=== PATIENT | female | born 1975 | race Caucasian/White ===

== ENCOUNTER → 2016-03-08 | Outpatient (CLI) | payer BC, MEDICARE ==
[2015-07-17 22:40] VITALS: BP 184/80
[~2016-03-08] MED LIST: LEVO50TA PO; Oxycodone Hcl/Acetaminophen PO; POLY17PO5 PO
--- NOTE | 2016-03-11 12:51 | SLEEP ---
DATE OF STUDY: 03/09/2016 ATTENDING PHYSICIAN: Dr. Wesley Fischer. The patient is a 40-year-old who weighs 300 pounds with a BMI of 51. The patient's [place] score was 17. Sleep study was performed at [facility] to rule out MAYANK. During the night study, the patient spent 428 minutes in bed and slept for 378 minutes with sleep efficiency of 87%. Sleep latency was 2 minutes with a REM latency of 155 minutes. Overall, sleep architecture showed increased stage I sleep, normal stage II sleep, normal slow wave and reduced REM sleep. During the night of the study, patient had no obstructive apneas, mixed or central apneas. There were 22 hypopneas. The patient's apnea hypopnea index was only 4 per hour. Supine index 8 per hour and REM index of 3 per hour. Review of nocturnal oximetry study revealed a mean oxygen saturation 97%, the lowest of 89%. No clinically significant desaturation of less than 89% were observed. EKG monitoring revealed normal sinus rhythm. No sustained arrhythmias were observed. Average heart rate was 79 beats per minute. PLMS were seen at index of 38 per hour and none caused EEG arousals. Due to low AHI, the patient did not meet the split night criteria for CPAP initiation. IMPRESSION: 1. No clinically significant sleep disordered breathing. The patient's AHI for the entire night was 4 per hour. 2. No clinically significant nocturnal hypoxia. 3. Moderate PLMS at an index of 38 per hour, but none caused EEG arousals. RECOMMENDATIONS: 1. The patient did not meet the split night criteria for CPAP initiation. 2. The patient has moderate to severe subjective hypersomnia without any significant sleep disorder breathing. The patient is not on any sedatives or narcotics either. Consider ruling out other possible etiologies such as narcolepsy or idiopathic hypersomnia. If clinically indicated, consider doing multiple sleep latency tests. 3. 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 4. Caution regarding driving until patient's hypersomnia is resolved. 5. PLMS does not need to be treated unless the patient has symptoms of restless legs during the day. MARTIN FERRARA MD DR: ROLAND/wade JOB#: [id number] / [id number] WESLEY Cr MDD
== END | disposition home or self-care (01) ==
LOC: RT 18:18
PROVIDERS: ATTEND Family Medicine
DX: R53.83 Other fatigue (principal); I10 Essential (primary) hypertension; E03.9 Hypothyroidism, unspecified; Z68.42 Body mass index [BMI] 45.0-49.9, adult; E66.01 Morbid (severe) obesity due to excess calories; G47.33 Obstructive sleep apnea (adult) (pediatric)
CPT/HCPCS: 95810

== ENCOUNTER 2016-09-04 09:14 | Emergency (ER) | payer BC ==
[2015-07-17 22:40] VITALS: BP 184/80
[~2016-09-04 09:14] MED LIST changes: +POLY17PO29 PO; -POLY17PO5 PO
== END 2016-09-04 09:20 | disposition left against medical advice (07) ==
LOC: ER 09:14
DX: S69.91XA Unspecified injury of right wrist, hand and finger(s), initial encounter (principal); Z53.21 Procedure and treatment not carried out due to patient leaving prior to being seen by health care provider; X58.XXXA Exposure to other specified factors, initial encounter; Y93.89 Activity, other specified; Y92.89 Other specified places as the place of occurrence of the external cause; Y99.8 Other external cause status

== ENCOUNTER 2017-01-04 12:34 | Emergency (ER) | payer BC ==
[~2017-01-04] VITALS: Ht 162.6 cm; Wt 134.3 kg
[2017-01-04] MEDS ORDERED: BENZONATATE 100 MG CAPSULE. PO ONE (13:15)
[2017-01-04] MEDS ORDERED: IPRATRPIUM/ALBUTEROL 0.5/2.5MG 3 ML NEBU. NEB ONE (13:15)
[2017-01-04] MEDS ORDERED: predniSONE 20 MG TABLET PO ONE (13:15)
--- NOTE | 2017-01-04 13:25 | RAD ---
Chest, 2 views, 01/04/2017: History: Cough Comparison is made to a study from 10/19/2008. The heart size and pulmonary vascularity are normal. No pulmonary infiltrates are seen. There is no evidence of pleural fluid. Mild spurring is present in the spine. IMPRESSION: No acute cardiopulmonary abnormality is detected.
[2017-01-04] MEDS ORDERED: BENZ100C PO (13:49)
[2017-01-04] MEDS ORDERED: PROAIR HFA8.5 GM INH (13:49)
[2017-01-04] MEDS ORDERED: PRED50TA PO (13:49)
--- NOTE | 2017-01-04 13:49 | PHYS DOC ---
Past Medical History Past Medical History: Hypertension, Hypothyroid Past Surgical History: Cholecystectomy Additional Past Surgical Histo: R FINGER, CYST FROM ABD Alcohol Use: Rarely Drug Use: None Adult General Chief Complaint Chief Complaint: COUGH HPI HPI Patient is a 41 year old female with history of hypertension who presents today complaining of a productive cough with nasal congestion for one week. Patient denies any fever. Patient is actively coughing in the ED. Denies any history of smoking. Review of Systems Review of Systems Constitutional: Denies fever or chills [] Eyes: Denies change in visual acuity, redness, or eye pain [] HENT: Reports nasal congestion, denies sore throat [] Respiratory: Reports cough denies shortness of breath [] Cardiovascular: No additional information not addressed in HPI [] GI: Denies abdominal pain, nausea, vomiting, bloody stools or diarrhea [] : Denies dysuria or hematuria [] Musculoskeletal: Denies back pain or joint pain [] Integument: Denies rash or skin lesions [] Neurologic: Denies headache, focal weakness or sensory changes [] All other systems were reviewed and found to be within normal limits, except as documented in this note. Current Medications Current Medications Current Medications Medications (Trade) Dose Ordered Sig/Daily Start Time Stop Time Status Last Admin Dose Admin Albuterol/ Ipratropium (Duoneb) 3 ml 1X ONCE 01/04/17 13:15 01/04/17 13:16 DC 01/04/17 13:26 3 ML Benzonatate (Tessalon Perle) 100 mg 1X ONCE 01/04/17 13:15 01/04/17 13:16 DC 01/04/17 13:15 100 MG Prednisone (Prednisone) 60 mg 1X ONCE 01/04/17 13:15 01/04/17 13:16 DC 01/04/17 13:15 60 MG Allergies Allergies Allergies Coded Allergies Type Severity Reaction Last Updated Verified NSAIDS (Non-Steroidal Anti-Inflamma Allergy Intermediate 03/29/14 Yes Physical Exam Physical Exam Constitutional: Well developed, well nourished, no acute distress, non-toxic appearance. [] HENT: Normocephalic, atraumatic, bilateral external ears normal, oropharynx moist, no oral exudates, nose normal. [] Eyes: PERRLA, EOMI, conjunctiva normal, no discharge. [] Neck: Normal range of motion, no tenderness, supple, no stridor. [] Cardiovascular:Heart rate regular rhythm, no murmur [] Lungs & Thorax: Bilateral breath sounds clear to auscultation patient is actively coughing in the ED Abdomen: Bowel sounds normal, soft, no tenderness, no masses, no pulsatile masses. [] Skin: Warm, dry, no erythema, no rash. [] Back: No tenderness, no CVA tenderness. [] Extremities: No tenderness, no cyanosis, no clubbing, ROM intact, no edema. [] Neurologic: Alert and oriented X 3, normal motor function, normal sensory function, no focal deficits noted. [] Psychologic: Affect normal, judgement normal, mood normal. [] Current Patient Data Vital Signs Vital Signs Date Time Temp Pulse Resp B/P (MAP) Pulse Ox O2 Delivery O2 Flow Rate FiO2 01/04/17 13:29 97 Room Air 01/04/17 13:17 207/111 (143) 01/04/17 12:41 98.7 91 20 98.7 EKG EKG [] Radiology/Procedures Radiology/Procedures [] Course & Med Decision Making Course & Med Decision Making Pertinent Labs and Imaging studies reviewed. (See chart for details) Patient is in the ED with symptoms of viral bronchitis including cough and nasal congestion for one week. Chest x-ray interpreted by radiologist as negative for any acute findings. She is given a DuoNeb treatment prednisone and Tessalon Perles and be discharged with the same. Instructed to follow-up with the PCP in 1-2 weeks. Dragon Disclaimer Dragon Disclaimer This electronic medical record was generated, in whole or in part, using a voice recognition dictation system. Departure Departure Impression: Primary Impression: Acute viral bronchitis Additional Impression: Upper respiratory infection Disposition: 01 HOME, SELF-CARE Condition: STABLE Referrals: WESLEY KWAN MD (PCP) Follow-up with your doctor in 1-2 weeks Patient Instructions: Acute Bronchitis, Upper Respiratory Infection, Adult, [id number] Additional Instructions: You were seen with symptoms consistent of viral bronchitis. Take the prescribed medicines as ordered. Follow-up with a primary care doctor in the next 1-2 weeks. 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
[2017-01-04 13:52] VITALS: BP 188/106
== END 2017-01-04 13:52 | disposition home or self-care (01) ==
LOC: ER 12:34
DX: J06.9 Acute upper respiratory infection, unspecified (principal); J20.8 Acute bronchitis due to other specified organisms; I10 Essential (primary) hypertension; E03.9 Hypothyroidism, unspecified; Z88.6 Allergy status to analgesic agent
CPT/HCPCS: 71020; 94250; 94640; 94760; 99284; J7512; J7620

== ENCOUNTER → 2017-01-10 | Outpatient (CLI) | payer BC ==
[2017-01-04 13:52] VITALS: BP 188/106
[~2017-01-10] MED LIST changes: +BENZ100C PO; +GADOBUTROL 10 MMOL/10 ML VIAL IV ONE; +PRED50TA PO; +PROAIR HFA8.5 GM INH
--- NOTE | 2017-01-10 12:38 | RAD ---
MRI of the cervical spine without and with contrast 01/10/2017 CLINICAL HISTORY: Abnormal movements and spasms. TECHNIQUE: Unenhanced T1-weighted, T2-weighted and inversion recovery sagittal and gradient echo, T2-weighted and T1-weighted axial images of the cervical spine were obtained. After the intravenous administration of 10 cc of Gadavist, enhanced T1-weighted sagittal and axial images of the cervical spine were obtained. FINDINGS: Mild lateral curvature of the cervical spine is seen convex to the right. There is straightening of the normal cervical lordosis. Degenerative signal changes are seen involving all of the disks of the cervical spine. Degenerative changes are seen within the marrow surrounding these discs. A 1.1 cm hemangioma is seen involving the T1 vertebral body. The cervical spinal cord is normal morphology, position, and signal characteristics. No area of abnormal contrast enhancement is seen. Mild to moderate mucosal thickening is seen involving the visualized paranasal sinuses. On the axial images degenerative changes are seen involving the cervical disc spaces consisting of minimal to mild generalized disc bulges and degenerative changes involving the uncovertebral and facet joints bilaterally. These findings do not result in significant central spinal canal or neural foraminal stenosis at any level. IMPRESSION: Mild degenerative changes are seen involving the cervical spine. These findings do not result in significant central spinal canal or neural foraminal stenosis at any level. No area of abnormal signal intensity or contrast enhancement is seen involving the cervical spinal cord. Electronically signed by: Kirill Ya MD (01/10/2017 12:34 PM) [facility]
== END | disposition home or self-care (01) ==
LOC: MRI 08:31
PROVIDERS: ATTEND Psychiatry & Neurology Neurology
DX: M47.892 Other spondylosis, cervical region (principal)
CPT/HCPCS: 72156; A9585

== ENCOUNTER → 2017-01-20 | Outpatient (CLI) | payer BC ==
[2017-01-04 13:52] VITALS: BP 188/106
[~2017-01-20] MED LIST changes: -GADOBUTROL 10 MMOL/10 ML VIAL IV ONE
--- NOTE | 2017-01-25 18:57 | EEG ---
DATE OF SERVICE: 01/20/2017 EEG NUMBER: [id number]. SUBJECTIVE: This is a 41-year-old female patient with history of abnormal movements. EEG was requested to help rule out seizure. METHODS: Twenty electrodes were applied according to the international 10-20 electrode placement system. EKG monitoring, hyperventilation, intermittent photic stimulation, monopolar and bipolar montages are routinely utilized. The record was obtained on a digital system with video monitoring. FINDINGS: 1. Background: The patient was recorded in the awake and drowsy states. No sleep state was recorded. The overall background amplitude is 5-15 microvolts. No clear well organized posterior dominant rhythm is observed. The overall background rhythm is with fast activity in Beta frequency throughout the entire recording. 2. Abnormalities: No specific epileptiform discharge or electrographic seizure is seen. No focal or diffuse slowing. EKG artifact is throughout the entire recording. 3. Activation: Hyperventilation was performed with good efforts and normal response. Intermittent photic stimulation was performed with photic driving. No specific epileptiform discharge or electrographic seizure induced by hyperventilation or intermittent photic stimulation. IMPRESSION: This EEG is a borderline study for the awake and drowsy states. No sleep state was recorded. The overall background rhythm is with fast activity in Beta frequency. No focal, lateralizing, specific epileptiform discharge or electrographic seizure is seen. However, even a normal EEG does not rule out seizure. Suggest repeat EEG; this EEG is with fast activity in Beta frequency through out the entire recording maybe under medication effects. WEI FERRARA MD DR: BULL/wade JOB#: [id number] / [id number] JEANIE
== END | disposition home or self-care (01) ==
LOC: RT 07:46
PROVIDERS: ATTEND Psychiatry & Neurology Neurology
DX: R25.9 Unspecified abnormal involuntary movements (principal)
CPT/HCPCS: 95816

== ENCOUNTER → 2017-01-26 | Outpatient (CLI) | payer BC ==
[2017-01-04 13:52] VITALS: BP 188/106
[2017-01-26 09:24] LABS: BASO # 0.1 x10^3/uL (0.0-0.2); BASO % 1 % (0-3); EOS % 3 % (0-3); HEMATOCRIT 42.7 % (36.0-47.0); HEMOGLOBIN 14.3 g/dL (12.0-15.5); LYMPH % 29 % (24-48); MEAN CORPUSCULAR HEMOGLOBIN 31 pg (25-35); MEAN CORPUSCULAR HGB CONC 34 g/dL (31-37); MEAN CORPUSCULAR VOLUME 92 fL (79-100); MONO % 5 % (0-9); NEUT % 63 % (31-73); PLATELET COUNT 231 x10^3/uL (140-400); RED BLOOD COUNT 4.65 x10^6/uL (3.50-5.40); RED CELL DISTRIBUTION WIDTH 13.7 % (11.5-14.5); WHITE BLOOD COUNT 10.3 x10^3/uL (4.0-11.0)
[2017-01-26 09:43] LABS: % SAT IRON 32 % (15-34); IRON,SERUM 99 ug/dL (50-170)
[2017-01-26 10:00] LABS: ALBUMIN 3.8 g/dL (3.4-5.0); ALBUMIN/GLOBULIN RATIO 0.9 (1.0-1.7); CREATININE 0.6 mg/dL (0.6-1.0); GFR 109.6; POTASSIUM 3.6 mmol/L (3.5-5.1); TOTAL BILIRUBIN 0.6 mg/dL (0.2-1.0); TOTAL PROTEIN 8.2 g/dL (6.4-8.2)
== END | disposition home or self-care (01) ==
LOC: LAB 09:03
PROVIDERS: ATTEND Psychiatry & Neurology Neurology
DX: R25.9 Unspecified abnormal involuntary movements (principal); R79.89 Other specified abnormal findings of blood chemistry
CPT/HCPCS: 36415; 80053; 82306; 82607; 82728; 83540; 83550; 84443; 85025

== ENCOUNTER → 2017-03-07 | Outpatient (CLI) | payer BC | END | disposition home or self-care (01) | LOC: RT 08:47 | DX: R25.9 Unspecified abnormal involuntary movements (principal) | CPT/HCPCS: 95816 ==

== ENCOUNTER 2018-02-27 07:26 | Emergency (ER) | payer SELFPAY ==
[~2018-02-27] VITALS: Ht 162.6 cm; Wt 143.8 kg
[~2018-02-27 07:26] MED LIST changes: +ALBU2.5V8 INH; -PROAIR HFA8.5 GM INH
--- NOTE | 2018-02-27 08:45 | RAD ---
LEFT LOWER EXTREMITY ULTRASOUND WITH DOPPLER 02/27/2018 8:21 AM Clinical Information: Left leg pain and fall. Comparison: None. Technique: Multiple grayscale, color Doppler, and spectral Doppler sonographic images of the lower extremity venous structures were obtained. Findings: Greater saphenous veins patent. The left common femoral, femoral, and popliteal veins exhibit normal compression, respiratory phasicity, and augmentation. No intraluminal thrombi are identified. Color Doppler flow is demonstrated in the left posterior tibial veins. Impression: 1. No evidence of deep venous thrombosis. Electronically signed by: Lorena Rapp MD (02/27/2018 8:40 AM) [facility]
--- NOTE | 2018-02-27 09:09 | RAD ---
Indication: Left anterior tibia/fibula pain due to fall and swelling of the ankle joint. TECHNIQUE: AP and lateral views of the left tibia and fibula COMPARISON: None FINDINGS/ impression: No acute fracture or dislocation. Mild swelling overlying lateral malleolus. Mild tricompartmental osteoarthritis of the knee joint. Electronically signed by: Nadir Quiroga DO (02/27/2018 9:05 AM) [id number]
--- NOTE | 2018-02-27 09:51 | PHYS DOC ---
Past Medical History Past Medical History: Hypertension, Hypothyroid Past Surgical History: Cholecystectomy Additional Past Surgical Histo: R FINGER, CYST FROM ABD Additional Information: Denies smoking Alcohol Use: Rarely Drug Use: None Adult General Chief Complaint Chief Complaint: MECHANICAL FALL HPI HPI Patient is a 42 year old female who presents with complaining of left lower extremity pain and ecchymosis after she had a fall. Patient states she had a fall 3 days ago on a slippery parking lot because of the ice and landed on concrete area and injured left lower extremity. Patient states she had ecchymosis of left leg that gradually getting worse and extending to her left flank. Patient also complaining of numbness of left knee area without other focal neuro deficit. Patient denies loss of consciousness and other injuries. Patient rated her pain as a moderate pain and does not want to have pain medication in ER. Review of Systems Review of Systems Constitutional: Denies fever or chills [] Eyes: Denies change in visual acuity, redness, or eye pain [] HENT: Denies nasal congestion or sore throat [] Respiratory: Denies cough or shortness of breath [] Cardiovascular: No additional information not addressed in HPI [] GI: Denies abdominal pain, nausea, vomiting, bloody stools or diarrhea [] : Denies dysuria or hematuria [] Musculoskeletal: Denies back pain, reports joint pain [] Integument: Denies rash, reports ecchymoses Neurologic: Denies headache, focal weakness or sensory changes [] Endocrine: Denies polyuria or polydipsia [] All other systems were reviewed and found to be within normal limits, except as documented in this note. Allergies Allergies Allergies Coded Allergies Type Severity Reaction Last Updated Verified meloxicam Allergy Severe Swelling 02/27/18 Yes NSAIDS (Non-Steroidal Anti-Inflamma Allergy Intermediate 03/29/14 Yes Physical Exam Physical Exam Constitutional: Well developed, well nourished, no acute distress, non-toxic appearance, morbidly obese. [] HENT: Normocephalic, atraumatic Eyes: PERRLA, EOMI, conjunctiva normal, no discharge. [] Neck: Normal range of motion, no tenderness, supple, no stridor. [] Cardiovascular:Heart rate regular rhythm, no murmur [] Lungs & Thorax: Bilateral breath sounds clear to auscultation [] Skin: Warm, dry, no erythema, no rash. [] Back: No tenderness, no CVA tenderness. [] Extremities: Left lower extremity with extensive old ecchymoses from wound down to ankle and feet with trace edema with mild tenderness in lateral side of leg the pulses, no sign of compartment syndrome, subjective paresthesia around the left knee, ROM intact. [] Neurologic: Alert and oriented X 3, normal motor function, no focal deficits noted. [] Psychologic: Affect normal, judgement normal, mood normal. [] Current Patient Data Vital Signs Vital Signs Date Time Temp Pulse Resp B/P (MAP) Pulse Ox O2 Delivery O2 Flow Rate FiO2 02/27/18 07:48 97.9 79 17 187/94 (125) 97 Room Air 97.9 EKG EKG [] Radiology/Procedures Radiology/Procedures [address] [address] IMAGING REPORT Signed PATIENT: HIWOT FAIRBANKS ACCOUNT: [id number] : 1975 LOCATION: ER AGE: 42 SEX: F EXAM STATUS: REG ER ORD. PHYSICIAN: LEDY AVILA MD REASON: fall , edema and pain PROCEDURE: VENOUS LOWER EXTREMITY LEFT LEFT LOWER EXTREMITY ULTRASOUND WITH DOPPLER 02/27/2018 8:21 AM Clinical Information: Left leg pain and fall. Comparison: None. Technique: Multiple grayscale, color Doppler, and spectral Doppler sonographic images of the lower extremity venous structures were obtained. Findings: Greater saphenous veins patent. The left common femoral, femoral, and popliteal veins exhibit normal compression, respiratory phasicity, and augmentation. No intraluminal thrombi are identified. Color Doppler flow is demonstrated in the left posterior tibial veins. Impression: 1. No evidence of deep venous thrombosis. Electronically signed by: Gustavo Griffin MD (02/27/2018 8:40 AM) [facility] DICTATED and SIGNED BY: GUSTAVO GRIFFIN MD DATE: 02/27/[address] [address] IMAGING REPORT Signed PATIENT: HIWOT FAIRBANKS ACCOUNT: [id number] : 1975 LOCATION: ER AGE: 42 SEX: F EXAM STATUS: REG ER ORD. PHYSICIAN: LEDY AVILA MD REASON: fall PROCEDURE: TIBIA FIBULA LEFT Indication: Left anterior tibia/fibula pain due to fall and swelling of the ankle joint. TECHNIQUE: AP and lateral views of the left tibia and fibula COMPARISON: None FINDINGS/ impression: No acute fracture or dislocation. Mild swelling overlying lateral malleolus. Mild tricompartmental osteoarthritis of the knee joint. Electronically signed by: Nadir Quiroga DO (02/27/2018 9:05 AM) [id number] DICTATED and SIGNED BY: NADIR QUIROGA DO DATE: 02/27/18902 Course & Med Decision Making Course & Med Decision Making Pertinent Imaging studies reviewed. (See chart for details) Evaluation of patient in ER showed 42-year-old male patient with accidental fall is and injury to left lower extremity with complaining of increasing ecchymosis and subjective paresthesias of skin of left knee. Patient had extensive ecchymoses without deformity. Patient did not have vascular deficit and had normal range of motion. X-ray and ultrasound of lower extremity was unremarkable for fracture or DVT. Patient did not want to have pain medication in ER. Plan to apply Ramón wrap and discharge patient home to diagnose of ecchymosis and constipation. Dragon Disclaimer Dragon Disclaimer This electronic medical record was generated, in whole or in part, using a voice recognition dictation system. Departure Departure Impression: Primary Impression: Traumatic ecchymosis of left lower leg Additional Impressions: Paresthesias Fall from slipping on ice Morbid obesity with BMI of 50.0-59.9, adult Contusion of left lower extremity Disposition: HOME, SELF-CARE (at 0948) Condition: STABLE Referrals: WESLEY KWAN MD (PCP) Patient Instructions: Contusion, Paresthesia Additional Instructions: Apply ice on the affected area Elevate your left leg Follow-up with your primary care physician in 3-5 days Return to ER if not getting better Problem Qualifiers LEDY AVILA MD Feb 27, 2018 09:51
[2018-02-27 10:20] VITALS: BP 164/88
== END 2018-02-27 10:36 | disposition home or self-care (01) ==
LOC: ER 07:26
DX: S80.12XA Contusion of left lower leg, initial encounter (principal); R20.2 Paresthesia of skin; I10 Essential (primary) hypertension; E66.01 Morbid (severe) obesity due to excess calories; Z68.43 Body mass index [BMI] 50.0-59.9, adult; E03.9 Hypothyroidism, unspecified; Z90.49 Acquired absence of other specified parts of digestive tract; Z88.8 Allergy status to other drugs, medicaments and biological substances; W00.0XXA Fall on same level due to ice and snow, initial encounter; Y93.89 Activity, other specified; Y92.481 Parking lot as the place of occurrence of the external cause; Y99.8 Other external cause status
CPT/HCPCS: 29125; 29515; 73590; 93971; 99284

== ENCOUNTER → 2019-09-25 | Outpatient (CLI) | payer BC ==
--- NOTE | 2019-09-25 15:26 | KCIC ---
EXAM: Pelvic sonogram. HISTORY: Menstrual irregularity. TECHNIQUE: Transabdominal and transvaginal sonographic imaging of the pelvis was performed. COMPARISON: None. FINDINGS: The uterus measures 9.5 x 5.2 x 5.3 cm. There is a suspected fibroid within the left uterine fundus measuring 6.1 x 5.3 x 4.7 cm. The endometrial stripe measures 5.5 mm thickness. There is a 5.3 x 4.7 x 4.1 cm cyst within the right ovary. There is normal blood flow within the surrounding right ovarian parenchyma. The left ovary measures 3.4 x 1.8 x 2.1 cm and contains small follicles. There is no pelvic free fluid. IMPRESSION: 1. Suspected 6.1 cm uterine fibroid. 2. Normal endometrial thickness for the reported premenopausal status of the patient. 3. 5.3 cm right ovarian cyst. Electronically signed by: Alfreda Ohara MD (09/25/2019 3:23 PM) [id number]
--- NOTE | 2019-09-25 16:48 | KCIC ---
Bilateral digital screening mammograms with 3-D tomosynthesis: Reason for examination: Routine baseline screening. Bilateral mammograms in CC and oblique projections were obtained with 2-D imaging and 3-D tomosynthesis imaging on a Siemens Inspiration unit and reviewed on the workstation. Interpretation was made with the benefit of CAD. The skin and nipples show no abnormalities. No abnormal axillary lymph nodes are seen. The breast parenchyma is heterogeneously dense. (Breast density: Category C.) There are circumscribed nodules probably representing intramammary lymph nodes at the 10:00 B position of the right breast approximately 12 cm posterior to the nipple and measuring 1.1 cm in size and in the 2:00 B position of the left breast 9.7 cm from the nipple and measuring 7.6 mm in size. Further evaluation with ultrasound should be considered. There are no other dominant masses, suspicious calcifications or architectural distortion. Impression: Small nodules consistent with probable intramammary lymph nodes at the 2:00 B position of the left breast and 10:00 B position of the right breast. Recommend further evaluation with ultrasound. Your patient's mammogram demonstrates that she has dense breast tissue (breast density category C or D), which could hide abnormalities, and if she has other risk factors for breast cancer that have been identified, she might benefit from supplemental screening tests that may be suggested by you as her ordering physician. Dense breast tissue, in and of itself, is a relatively common condition. Therefore, this information is not provided to cause undue concern, but rather to raise your awareness and to promote discussion with your patient regarding the presence of other risk factors, in addition to dense breast tissue. Your patient's mammography results will be sent to her. BI-RAD Category 0: Incomplete. Needs additional imaging evaluation. "Our facility is accredited by the [employer] Mammography Program." This patient's information has been entered into a reminder system for the patient to be notified with the results of her examination and a target date for the next mammogram. Electronically signed by: Brooke George MD (09/25/2019 4:45 PM) [id number]
== END | disposition home or self-care (01) ==
LOC: KCIC US 13:52
PROVIDERS: ATTEND Family Medicine
DX: Z12.31 Encounter for screening mammogram for malignant neoplasm of breast (principal); N64.89 Other specified disorders of breast; N92.6 Irregular menstruation, unspecified; N83.291 Other ovarian cyst, right side; N83.01 Follicular cyst of right ovary; Z87.42 Personal history of other diseases of the female genital tract
CPT/HCPCS: 76856; 77063; 77067

== ENCOUNTER → 2019-10-31 | Outpatient (CLI) | payer BC ==
--- NOTE | 2019-10-31 14:07 | KCIC ---
Bilateral breast ultrasound: Reason for examination: Nodules bilaterally on screening mammogram. Comparison is made to mammographic exam dated 09/25/2019. Ultrasound examination was performed bilaterally with attention to the upper outer quadrants and axilla. In the right breast at the 10:00 position 10 cm from the nipple, there appears to be a small 6.5 mm anechoic lesion with posterior acoustic enhancement consistent with a cyst. In the 10:00 position 12 cm from the nipple, there is a small 9.8 mm hypoechoic lesion with echogenic center which probably represents an intramammary lymph node. In the 10:00 position 6 cm from the nipple, there is a 5.6 mm hypoechoic fibrocystic type lesion with no abnormal vascularity. No suspicious nodules are seen. No abnormal appearing lymph nodes are seen in the right axilla. In the left breast at the 2:00 position 9 cm from the nipple, there is a hypoechoic circumscribed lesion in parallel orientation with some posterior acoustic enhancement which may represent a small fibroadenoma or intramammary lymph node. At the 3:00 position 9 cm from the nipple, there is a nodule with an echogenic hilum consistent with an intramammary lymph node. No suspicious nodules are seen. No abnormal appearing lymph nodes are seen in the left axilla. IMPRESSION: Small nodules consistent with intramammary lymph nodes at the 3:00 position of the left breast and 10:00 position of the right breast and additional small cystic and fibrocystic lesions at the 10:00 position of the right breast 6 cm and 10 cm from the nipple. Small nodule possibly representing a fibroadenoma at the 2:00 position of the left breast. Recommend 6 month follow-up with ultrasound. BI-RADS Category 3: Probably Benign. "Our facility is accredited by the [employer] Mammography Program." This patient's information has been entered into a reminder system for the patient to be notified with the results of her examination and a target date for the next mammogram. Electronically signed by: Brooke George MD (10/31/2019 2:04 PM) [facility]
== END | disposition home or self-care (01) ==
LOC: KCIC US 12:52
PROVIDERS: ATTEND Family Medicine
DX: R92.8 Other abnormal and inconclusive findings on diagnostic imaging of breast (principal); N60.01 Solitary cyst of right breast; N63.21 Unspecified lump in the left breast, upper outer quadrant
CPT/HCPCS: 76641